=== PATIENT | male | born 1965 | race African-American/Black ===

== ENCOUNTER 2021-09-22 21:16 | Inpatient (IN) | payer MEDICAID, OTHER ==
[~2021-09-22] VITALS: Ht 182.9 cm; Wt 113.3 kg
[2021-09-22 22:18] LABS: Basophils # (auto) 0.1 10 ^3/uL (0-0.2); Basophils % (auto) 0.9 % (0.0-2.0); Eosinophils # (auto) 0 10 ^3/uL (0-0.8); Eosinophils % (auto) 0.7 % (0.0-7.0); Hematocrit 46.4 % (41.0-53.0); Hemoglobin 15.8 g/dL (13.5-17.5); Lymphocytes # (auto) 2.3 10 ^3/uL (0.4-5.4); Lymphocytes % (auto) 34.8 % (10.0-50.0); Mean Corpuscular Volume 88.4 fL (80.0-100.0); Monocytes # (auto) 0.6 10 ^3/uL (0-1.3); Monocytes % (auto) 9.3 % (0.0-12.0); Neutrophils # (auto) 3.6 10 ^3/uL (1.6-8.6); Neutrophils % (auto) 54.3 % (37.0-80.0); Nucleated Red Blood Cells % 0.1 %; Red Blood Cells 5.25 10^6/uL (4.5-5.90); Red Cell Distribution Width 14.7 % (11.8-14.3); White Blood Cell 6.7 10^3/uL (4.4-10.8)
[2021-09-22 22:35] LABS: Albumin 3.8 g/dL (3.4-5.0); Calcium 9.2 mg/dL (8.5-10.1); Potassium 4.1 mmol/L (3.5-5.1)
[2021-09-22 22:38] LABS: Bilirubin, Total 0.7 mg/dL (0.2-1.0)
[2021-09-22] MEDS ORDERED: ASPirin 325 MG TAB PO ONE (23:00)
[2021-09-22] MEDS ORDERED: NITROGLYCERIN 0.4 MG SL TAB SL ONE (23:00)
[2021-09-23 06:20] LABS: Urine Bacteria NONE SEEN /hpf (None Seen); Urine Blood Negative /uL (Negative); Urine Mucus FEW (None Seen); Urine Specific Gravity 1.027 (1.001-1.035); Urine WBC 2 /hpf (0 - 3)
[2021-09-23] MEDS ORDERED: HYDROcodone-ACET 5/325MG TAB PO PRN (11:00)
[2021-09-23] MEDS: SODIUM CHLORIDE 0.9% 1,000 ML IV SCH (11:29)
[2021-09-23 13:00] VITALS: BP 111/81
[2021-09-23] MEDS: MORPHINE SULFATE INJ 2 MG/ml SYRG IV PRN (13:38)
[2021-09-23 17:00] VITALS: BP 110/65
[2021-09-23 20:00] VITALS: BP 109/61
[2021-09-23 21:45] VITALS: BP 109/61
[2021-09-23 23:53] VITALS: BP 112/63
[2021-09-24] VITALS (7 sets, daily range): BP systolic 102–139; BP diastolic 60–77
[2021-09-24] MEDS: MORPHINE SULFATE INJ 2 MG/ml SYRG IV PRN ×4 (01:47→21:46)
[2021-09-24] MEDS: SODIUM CHLORIDE 0.9% 1,000 ML IV SCH ×2 (04:43→21:58)
[2021-09-24 06:06] LABS: Basophils # (auto) 0 10 ^3/uL (0-0.2); Basophils % (auto) 0.7 % (0.0-2.0); Eosinophils # (auto) 0 10 ^3/uL (0-0.8); Eosinophils % (auto) 0.8 % (0.0-7.0); Hematocrit 43.8 % (41.0-53.0); Lymphocytes # (auto) 2.1 10 ^3/uL (0.4-5.4); Lymphocytes % (auto) 45.8 % (10.0-50.0); Mean Corpuscular Hemoglobin 30.5 pg (28.0-32.0); Mean Corpuscular Hgb Conc. 34.2 g/dL (32.0-36.0); Mean Corpuscular Volume 89.3 fL (80.0-100.0); Monocytes # (auto) 0.4 10 ^3/uL (0-1.3); Monocytes % (auto) 8.2 % (0.0-12.0); Neutrophils # (auto) 2.1 10 ^3/uL (1.6-8.6); Neutrophils % (auto) 44.5 % (37.0-80.0); Nucleated Red Blood Cells % 0.1 %; Red Blood Cells 4.91 10^6/uL (4.5-5.90); Red Cell Distribution Width 14.3 % (11.8-14.3); White Blood Cell 4.7 10^3/uL (4.4-10.8)
[2021-09-24 06:11] LABS: Albumin 3.3 g/dL (3.4-5.0); BUN/Creatinine Ratio 10.6; Calcium 8.6 mg/dL (8.5-10.1)
[2021-09-24 06:14] LABS: Bilirubin, Total 0.8 mg/dL (0.2-1.0); Total Protein 6.2 g/dL (6.4-8.2)
[2021-09-24 08:12] LABS: Cholesterol 222 mg/dL (< 200); HDL Cholesterol 33 mg/dL (40-59); LDL Cholesterol 157 mg/dL (< 100); Triglycerides 202 mg/dL (< 150)
[2021-09-24] MEDS: ENOXAPARIN SOD 40 MG/0.4 ML SYRINGE SC SCH (09:08)
[2021-09-24] MEDS: ASPirin 81 mg TAB PO SCH (09:08)
[2021-09-25 05:00] VITALS: BP 95/52
[2021-09-25 08:00] VITALS: BP 101/59
[2021-09-25] MEDS: ENOXAPARIN SOD 40 MG/0.4 ML SYRINGE SC SCH (08:34)
[2021-09-25] MEDS: ASPirin 81 mg TAB PO SCH (08:34)
[2021-09-25 09:00] VITALS: BP 101/59
[2021-09-25 12:48] VITALS: BP 96/51
[2021-09-25] MEDS: SODIUM CHLORIDE 0.9% 1,000 ML IV SCH (13:00)
[2021-09-25 16:49] VITALS: BP 111/66
[2021-09-25 22:00] VITALS: BP 111/74
[2021-09-25] MEDS: MORPHINE SULFATE INJ 2 MG/ml SYRG IV PRN (23:48)
[2021-09-26 05:00] VITALS: BP 93/51
[2021-09-26] MEDS: SODIUM CHLORIDE 0.9% 1,000 ML IV SCH (05:40)
[2021-09-26 06:59] LABS: Basophils # (auto) 0 10 ^3/uL (0-0.2); Basophils % (auto) 0.3 % (0.0-2.0); Eosinophils # (auto) 0 10 ^3/uL (0-0.8); Eosinophils % (auto) 0.9 % (0.0-7.0); Hematocrit 44.6 % (41.0-53.0); Hemoglobin 14.9 g/dL (13.5-17.5); Lymphocytes # (auto) 2.2 10 ^3/uL (0.4-5.4); Lymphocytes % (auto) 44.5 % (10.0-50.0); Mean Corpuscular Hemoglobin 29.7 pg (28.0-32.0); Mean Corpuscular Hgb Conc. 33.3 g/dL (32.0-36.0); Mean Corpuscular Volume 89.1 fL (80.0-100.0); Monocytes # (auto) 0.5 10 ^3/uL (0-1.3); Neutrophils # (auto) 2.2 10 ^3/uL (1.6-8.6); Neutrophils % (auto) 44.3 % (37.0-80.0); Nucleated Red Blood Cells % 0.1 %; Red Blood Cells 5.01 10^6/uL (4.5-5.90); Red Cell Distribution Width 14.4 % (11.8-14.3)
[2021-09-26 07:19] LABS: Potassium 3.8 mmol/L (3.5-5.1)
[2021-09-26 07:28] LABS: BUN/Creatinine Ratio 13.1; Calcium 8.7 mg/dL (8.5-10.1)
[2021-09-26 07:30] VITALS: BP 112/71
[2021-09-26 07:53] VITALS: BP 116/70
[2021-09-26] MEDS: ENOXAPARIN SOD 40 MG/0.4 ML SYRINGE SC SCH (09:08)
[2021-09-26] MEDS: ASPirin 81 mg TAB PO SCH (09:08)
[2021-09-26] MEDS: MORPHINE SULFATE INJ 2 MG/ml SYRG IV PRN ×2 (09:31→17:56)
[2021-09-26] MEDS ORDERED: ASPI-325 PO (12:20)
[2021-09-26 12:22] VITALS: BP 120/66
[2021-09-26 16:51] VITALS: BP 118/75
[2021-09-26 22:00] VITALS: BP 106/58
[2021-09-27 05:00] VITALS: BP 113/60
[2021-09-27] MEDS: MORPHINE SULFATE INJ 2 MG/ml SYRG IV PRN ×3 (05:01→14:20)
[2021-09-27 08:00] VITALS: BP 111/68
[2021-09-27 08:07] VITALS: BP 111/68
[2021-09-27] MEDS: ENOXAPARIN SOD 40 MG/0.4 ML SYRINGE SC SCH (09:30)
[2021-09-27] MEDS: ASPirin 81 mg TAB PO SCH (09:30)
[2021-09-27 12:47] VITALS: BP 98/61
[2021-09-27 15:12] VITALS: BP 118/65
== END 2021-09-27 15:37 | disposition home or self-care (01) | DRG 198 ==
LOC: ER 21:16 → TELE 09-23 10:56 → TELE-WESTW 09-23 10:56 → UNDOADMOB 09-23 10:56 → TELE-WESTW 09-23 12:27 → TELE 09-23 12:28 → TELE-WESTW 09-23 12:28 → WEST WING 09-27 13:43 → TELE-WESTW 09-27 13:43 → UNDODISOB 09-27 15:37
PROVIDERS: ADMIT Internal Medicine; ATTEND Internal Medicine
DX: I24.9 Acute ischemic heart disease, unspecified (principal); I10 Essential (primary) hypertension; M19.90 Unspecified osteoarthritis, unspecified site; W18.39XA Other fall on same level, initial encounter; Z20.822 Contact with and (suspected) exposure to COVID-19; Z79.899 Other long term (current) drug therapy; Z79.82 Long term (current) use of aspirin; Z98.890 Other specified postprocedural states; Y92.89 Other specified places as the place of occurrence of the external cause; Y93.89 Activity, other specified; Y99.8 Other external cause status
CPT/HCPCS: 36415; 70450; 71045; 73502; 80048; 80053; 80061; 81001; 83880; 84484; 85025; 93005; 93306; 96361; 96372; 96374; 96376; G0378

== ENCOUNTER 2022-06-09 00:49 | Emergency (ER) | payer MEDICARE, OTHER ==
[~2022-06-09] VITALS: Ht 177.8 cm; Wt 114.0 kg
[~2022-06-09 00:49] MED LIST: ASPI-325 PO
[2022-06-09 00:58] VITALS: BP 147/78
== END 2022-06-09 02:55 ==
LOC: ER 00:49
DX: S16.1XXA Strain of muscle, fascia and tendon at neck level, initial encounter (principal); S13.4XXA Sprain of ligaments of cervical spine, initial encounter; R51.9 Headache, unspecified; I10 Essential (primary) hypertension; V43.52XA Car driver injured in collision with other type car in traffic accident, initial encounter; Y93.89 Activity, other specified; Y92.488 Other paved roadways as the place of occurrence of the external cause; Y99.8 Other external cause status
CPT/HCPCS: 70450; 71250; 72125; 74176; 93005

== ENCOUNTER 2022-08-19 23:35 | Inpatient (IN) | payer MEDICARE, MEDICAID ==
[~2022-08-19] VITALS: Ht 177.8 cm; Wt 114.0 kg
[2022-08-20 01:41] LABS: Basophils # (auto) 0.1 10 ^3/uL (0-0.2); Basophils % (auto) 1.3 % (0.0-2.0); Eosinophils # (auto) 0.1 10 ^3/uL (0-0.8); Eosinophils % (auto) 1.1 % (0.0-7.0); Hematocrit 43.5 % (41.0-53.0); Hemoglobin 15.1 g/dL (13.5-17.5); Lymphocytes # (auto) 2.5 10 ^3/uL (0.4-5.4); Lymphocytes % (auto) 39.7 % (10.0-50.0); Mean Corpuscular Hemoglobin 32.1 pg (28.0-32.0); Mean Corpuscular Hgb Conc. 34.7 g/dL (32.0-36.0); Mean Corpuscular Volume 92.5 fL (80.0-100.0); Monocytes # (auto) 0.6 10 ^3/uL (0-1.3); Monocytes % (auto) 8.8 % (0.0-12.0); Neutrophils # (auto) 3.1 10 ^3/uL (1.6-8.6); Neutrophils % (auto) 49.1 % (37.0-80.0); Nucleated Red Blood Cells % 0.2 %; Red Cell Distribution Width 14.4 % (11.8-14.3); White Blood Cell 6.3 10^3/uL (4.4-10.8)
[2022-08-20 02:13] LABS: Albumin 3.6 g/dL (3.4-5.0); Calcium 8.9 mg/dL (8.5-10.1); Potassium 3.6 mmol/L (3.5-5.1)
[2022-08-20] MEDS ORDERED: methylPREDNISolone SOD SUCC 125 MG/2 ML VL IV ONE (02:15)
[2022-08-20] MEDS ORDERED: SODIUM CHLORIDE 0.9% 1,000 ML IV ONE (02:15)
[2022-08-20 02:16] LABS: Bilirubin, Total 0.4 mg/dL (0.2-1.0); Total Protein 7.3 g/dL (6.4-8.2)
[2022-08-20] MEDS ORDERED: IOHEXOL 350 MG/ML 100ML IJ ONE (03:40)
[2022-08-20] MEDS ORDERED: IPRATROPIUM BROM 0.5 MG/2.5ML INH SOL NEB ONE (05:15)
[2022-08-20] MEDS ORDERED: ALBUTEROL SULF 2.5 MG/0.5ML(0.5%) NEB SOLN NEB ONE (05:15)
[2022-08-20] MEDS ORDERED: ACETAMINOPHEN 325 MG TAB PO PRN (06:15)
[2022-08-20] MEDS ORDERED: ALBUTEROL SULF 2.5 MG/0.5ML(0.5%) NEB SOLN NEB PRN (06:15)
[2022-08-20] MEDS ORDERED: IPRATROPIUM BROM 0.5 MG/2.5ML INH SOL NEB PRN (06:15)
[2022-08-20] MEDS ORDERED: ONDANSETRON HCL 4 MG/2 ML VIAL IV PRN (06:15)
[2022-08-20] MEDS ORDERED: DOCUSATE SOD 100 MG CAP PO PRN (06:15)
[2022-08-20 06:43] LABS: Basophils # (auto) 0.1 10 ^3/uL (0-0.2); Basophils % (auto) 0.9 % (0.0-2.0); Eosinophils # (auto) 0 10 ^3/uL (0-0.8); Eosinophils % (auto) 0.3 % (0.0-7.0); Hematocrit 44.1 % (41.0-53.0); Hemoglobin 15.3 g/dL (13.5-17.5); Lymphocytes # (auto) 1.1 10 ^3/uL (0.4-5.4); Lymphocytes % (auto) 19.3 % (10.0-50.0); Mean Corpuscular Hgb Conc. 34.8 g/dL (32.0-36.0); Mean Corpuscular Volume 92.1 fL (80.0-100.0); Monocytes # (auto) 0.1 10 ^3/uL (0-1.3); Monocytes % (auto) 1.2 % (0.0-12.0); Neutrophils # (auto) 4.6 10 ^3/uL (1.6-8.6); Neutrophils % (auto) 78.3 % (37.0-80.0); Nucleated Red Blood Cells % 0.1 %; Red Blood Cells 4.78 10^6/uL (4.5-5.90); Red Cell Distribution Width 14.3 % (11.8-14.3); White Blood Cell 5.9 10^3/uL (4.4-10.8)
[2022-08-20] MEDS ORDERED: NITROGLYCERIN 0.4 MG SL TAB SL PRN (06:45)
[2022-08-20] MEDS ORDERED: MORPHINE SULFATE INJ 2 MG/ml SYRG IV PRN (06:45)
[2022-08-20 07:01] LABS: Calcium 8.6 mg/dL (8.5-10.1); Potassium 4.3 mmol/L (3.5-5.1)
[2022-08-20 07:04] LABS: BUN/Creatinine Ratio 15.5 (10.0-20.0); Bilirubin, Total 0.5 mg/dL (0.2-1.0); Total Protein 7.5 g/dL (6.4-8.2)
[2022-08-20] MEDS: SODIUM CHLORIDE 0.9% 1,000 ML IV SCH ×2 (07:04→22:31)
[2022-08-20] MEDS: HYDROcodone-ACET 5/325MG TAB PO PRN ×3 (09:20→20:42)
[2022-08-20] MEDS: ASPirin 81 mg TAB PO SCH (10:41)
[2022-08-20] MEDS: FAMOTIDINE (10MG/ML) 2ML VL IV SCH ×2 (10:42→22:17)
[2022-08-20] MEDS ORDERED: GENTAMICIN OPTH sol 0.3% 5ml EACHEYE ONE (12:15)
[2022-08-20] MEDS ORDERED: GENT0.3S10 EACHEYE (12:45)
[2022-08-20] MEDS ORDERED: METH4PAK PO (12:45)
[2022-08-20] MEDS: GENTAMICIN OPTH sol 0.3% 5ml EACHEYE SCH ×3 (14:00→22:24)
[2022-08-20] MEDS: methylPREDNISolone SOD SUCC 40 MG/ML VL IV SCH ×2 (14:09→22:17)
[2022-08-21] MEDS: GENTAMICIN OPTH sol 0.3% 5ml EACHEYE SCH ×3 (02:13→09:44)
[2022-08-21 02:45] VITALS: BP 121/66
[2022-08-21 05:19] LABS: Albumin 3.8 g/dL (3.4-5.0); Calcium 8.7 mg/dL (8.5-10.1); Potassium 4.2 mmol/L (3.5-5.1)
[2022-08-21 05:25] LABS: BUN/Creatinine Ratio 15.3 (10.0-20.0); Bilirubin, Total 0.5 mg/dL (0.2-1.0); Total Protein 7.3 g/dL (6.4-8.2)
[2022-08-21 06:12] LABS: Basophils # (auto) 0 10 ^3/uL (0-0.2); Basophils % (auto) 0.1 % (0.0-2.0); Eosinophils # (auto) 0 10 ^3/uL (0-0.8); Hematocrit 43.7 % (41.0-53.0); Hemoglobin 14.9 g/dL (13.5-17.5); Lymphocytes # (auto) 1.3 10 ^3/uL (0.4-5.4); Lymphocytes % (auto) 13.5 % (10.0-50.0); Mean Corpuscular Hemoglobin 31.8 pg (28.0-32.0); Mean Corpuscular Hgb Conc. 34.2 g/dL (32.0-36.0); Monocytes # (auto) 0.3 10 ^3/uL (0-1.3); Neutrophils # (auto) 7.8 10 ^3/uL (1.6-8.6); Neutrophils % (auto) 83.4 % (37.0-80.0); Nucleated Red Blood Cells % 0.1 %; Red Cell Distribution Width 14.4 % (11.8-14.3); White Blood Cell 9.3 10^3/uL (4.4-10.8)
[2022-08-21] MEDS: methylPREDNISolone SOD SUCC 40 MG/ML VL IV SCH (06:21)
[2022-08-21 08:00] VITALS: BP 111/71
[2022-08-21] MEDS ORDERED: PNEUMOCOCCAL VACC POLYS 25 MCG/0.5 ML VIAL IM ONE (08:45)
[2022-08-21] MEDS: FAMOTIDINE (10MG/ML) 2ML VL IV SCH (09:43)
[2022-08-21] MEDS: HYDROcodone-ACET 5/325MG TAB PO PRN (09:43)
[2022-08-21] MEDS: ASPirin 81 mg TAB PO SCH (09:43)
[2022-08-21 10:37] VITALS: BP 111/71
== END 2022-08-21 12:34 | disposition home or self-care (01) | DRG 915 ==
LOC: ER 23:35 → TELE 08-20 06:39 → TELE-EAST 08-21 05:28
PROVIDERS: ADMIT Nurse Practitioner Family; ATTEND Internal Medicine Geriatric Medicine
DX: T78.49XA Other allergy, initial encounter (principal); J96.01 Acute respiratory failure with hypoxia; H10.32 Unspecified acute conjunctivitis, left eye; I95.0 Idiopathic hypotension; E66.01 Morbid (severe) obesity due to excess calories; Z68.36 Body mass index [BMI] 36.0-36.9, adult; Z80.0 Family history of malignant neoplasm of digestive organs; Z83.3 Family history of diabetes mellitus; Z79.899 Other long term (current) drug therapy
CPT/HCPCS: 36415; 36600; 71045; 71275; 80053; 82805; 84484; 85025; 93970; 94640; 96361; 96374; G0378; J3490